=== PATIENT | female | born 1950 | race Caucasian/White ===

== ENCOUNTER 2019-06-28 22:12 | Emergency (ER) | payer MEDICARE, BC ==
[~2019-06-28] VITALS: Ht 162.6 cm; Wt 71.8 kg
[2019-06-28 22:19] VITALS: BP 158/81; TEMP 97.6
[2019-06-28] MEDS ORDERED: AMITIZA 8MCG8 MCG (22:38)
[2019-06-28] MEDS ORDERED: LEXAPRO20 MG PO (22:38)
[2019-06-28] MEDS ORDERED: LIPITOR 10MG10 MG (22:39)
[2019-06-28] MEDS ORDERED: CELEXA10 MG (22:40)
[2019-06-28] MEDS ORDERED: PROTONIX 40MG T40 MG (22:41)
[2019-06-28] MEDS ORDERED: METROCREAM CREA45 GM (22:42)
[2019-06-28] MEDS ORDERED: BONIVA150 MG PO (22:42)
[2019-06-28] MEDS ORDERED: VALTREX1 GM PO (22:50)
[2019-06-28 23:00] VITALS: PULSE 71
== END 2019-06-28 23:12 | disposition home or self-care (01) ==
LOC: COL.ER 22:12
DX: B02.9 Zoster without complications (principal)